=== PATIENT | male | born 1990 | race Caucasian/White ===

== ENCOUNTER 2019-03-31 22:11 | Emergency (ER) | payer SELFPAY ==
[~2019-03-31] VITALS: Ht 175.3 cm; Wt 105.6 kg
[2019-04-01 00:21] VITALS: BP 134/98
== END 2019-04-01 00:23 | disposition home or self-care (01) ==
LOC: ED 23:59
DX: L55.0 Sunburn of first degree (principal); F14.10 Cocaine abuse, uncomplicated; F12.10 Cannabis abuse, uncomplicated; Z90.49 Acquired absence of other specified parts of digestive tract
CPT/HCPCS: 36415; 80053; 80307; 85025; 99284; J7512; Q0163